=== PATIENT | male | born 1975 | race African-American/Black ===

== ENCOUNTER 2019-04-03 21:48 | Emergency (ER) | payer MEDICAID, OTHER ==
[~2019-04-03] VITALS: Ht 175.3 cm; Wt 117.0 kg
[2019-04-03] MEDS ORDERED: KETOROLAC 60MG/2ML VIAL IM ONE (22:30)
[2019-04-03] MEDS ORDERED: DIAZEPAM 5 MG TABLET PO ONE (22:30)
[2019-04-04 00:20] VITALS: BP 143/87
== END 2019-04-04 00:22 | disposition home or self-care (01) ==
LOC: ER 22:42
DX: M54.6 Pain in thoracic spine (principal); F12.10 Cannabis abuse, uncomplicated; W01.0XXA Fall on same level from slipping, tripping and stumbling without subsequent striking against object, initial encounter; Y93.89 Activity, other specified; Y92.013 Bedroom of single-family (private) house as the place of occurrence of the external cause
CPT/HCPCS: 72070; 96372; 99283; J1885